=== PATIENT | female | born 2005 | race Hispanic/Latino ===

== ENCOUNTER 2023-03-06 16:44 | Emergency (ER) | payer OTHER ==
[2023-03-06] MEDS ORDERED: NA CHLORIDE 0.9% 1,000 ML ONE (17:27)
[2023-03-06] MEDS ORDERED: FAMOTIDINE 20 MG/2 ML VIAL IV ONE (17:27)
[2023-03-06 17:32] LABS: Specific Gravity 1.014 (1.005-1.030)
[2023-03-06 17:33] LABS: Specific Gravity 1.014 (1.005-1.030); Urine Bilirubin NEGATIVE (Negative); Urine Blood Negative (Negative); Urine Clarity Clear (Clear); Urine Color Light-Yellow (Yellow); Urine Glucose NEGATIVE (Negative); Urine Protein NEGATIVE (Negative); Urine Urobilinogen Normal (Normal)
[2023-03-06 17:38] LABS: Absolute Lymphocytes (CBC) 1.6 K/uL (0.7-4.9); Hematocrit 40.3 % (36.0-45.0); Lymphocytes % 22.5 % (15.3-44.8); MCV 92.1 fL (80-100); MPV 10.5 fL (7.6-11.3); Platelets 138 thou/uL (152-406); RBC Red Blood Cell Count 4.37 M/uL (3.86-4.86)
[2023-03-06 18:15] LABS: Albumin 3.9 g/dL (3.4-5.0); Bilirubin Total 0.8 mg/dL (0.2-1.0); Potassium 3.5 mEq/L (3.5-5.1); Protein, Total 8.1 g/dL (6.4-8.2)
--- NOTE | 2023-03-06 18:26 | EDPHYS ---
Physician Documentation [facility] Name: Mickie Cazares Age: 17 yrs Sex: Female : 2005 Arrival Date: 03/06/2023 Time: 16:44 Bed 9 Private MD: ED Physician Reginald Mccoy HPI: 03/06 17:05 This 17 yrs old Female presents to ER via Ambulatory with complaints of jh7 Abdominal Pain, Heartburn. 17:05 The patient presents with abdominal pain in the epigastric area, in the lower abdomen. jh7 Onset: The symptoms/episode began/occurred 1 week(s) ago. The symptoms do not radiate. Associated signs and symptoms: Pertinent positives: nausea, urinary frequency, Pertinent negatives: constipation, diarrhea, fever, vomiting. 17-year-old female presents to the ER for nausea, heartburn/burning feeling in chest and throat, and lower abdominal cramping. She states she was seen 1 week ago in an ER in [place]. She reports that they did imaging and stated that she had constipation. She reports that the pain has not gone away and that she is no longer constipated. Denies fever and dysuria, but reports urinary frequency.. 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 - Social history:: Smoking status: Patient denies any tobacco usage or history of. ROS: 17:05 Constitutional: Negative for fever, chills, and weight loss, Eyes: Negative for injury, jh7 pain, redness, and discharge, ENT: Negative for injury, pain, and discharge, Neck: Negative for injury, pain, and swelling, Cardiovascular: Negative for chest pain, palpitations, and edema, Respiratory: Negative for shortness of breath, cough, wheezing, and pleuritic chest pain, Back: Negative for injury and pain, MS/Extremity: Negative for injury and deformity, Skin: Negative for injury, rash, and discoloration, Neuro: Negative for headache, weakness, numbness, tingling, and seizure, 17:05 Abdomen/GI: Positive for abdominal pain, nausea, abdominal cramps, Negative for vomiting, diarrhea, constipation, 17:05 : Positive for urinary frequency, Negative for pelvic pain, flank pain, burning with urination, 17:05 All other systems are negative, Exam: 17:05 Constitutional: This is a well developed, well nourished patient who is awake, alert, jh7 and in no acute distress. Head/Face: Normocephalic, atraumatic. Eyes: Pupils equal round and reactive to light, extra-ocular motions intact. Lids and lashes normal. Conjunctiva and sclera are non-icteric and not injected. Cornea within normal limits. Periorbital areas with no swelling, redness, or edema. Neck: Trachea midline, no thyromegaly or masses palpated, and no cervical lymphadenopathy. Supple, full range of motion without nuchal rigidity, or vertebral point tenderness. No Meningismus. Cardiovascular: Regular rate and rhythm with a normal S1 and S2. No gallops, murmurs, or rubs. Normal PMI, no JVD. No pulse deficits. Respiratory: Lungs have equal breath sounds bilaterally, clear to auscultation and percussion. No rales, rhonchi or wheezes noted. No increased work of breathing, no retractions or nasal flaring. Abdomen/GI: Soft, non-tender, with normal bowel sounds. No distension or tympany. No guarding or rebound. No evidence of tenderness throughout. Back: No spinal tenderness. No costovertebral tenderness. Full range of motion. Skin: Warm, dry with normal turgor. Normal color with no rashes, no lesions, and no evidence of cellulitis. MS/ Extremity: Pulses equal, no cyanosis. Neurovascular intact. Full, normal range of motion. Neuro: Awake and alert, GCS 15, oriented to person, place, time, and situation. Motor strength 5/5 in all extremities. Sensory grossly intact. Normal gait. 17:05 Abdomen/GI: Inspection: abdomen appears normal, Bowel sounds: normal, Palpation: abdomen is soft and non-tender, Vital Signs: 17:05 BP 108 / 68; Pulse 98; Resp 18; Temp 97.8; Pulse Ox 100% on R/A; Weight 54.43 kg; ph Height 5 ft. 4 in. ; 17:23 BP 111 / 71; Pulse 93; Resp 18; Pulse Ox 100% on R/A; Pain 7/10; ld1 17:05 Body Mass Index 20.60 (54.43 kg, 162.56 cm) - Percentile 36.6 % ph 17:23 Pain Scale: Adult ld1 MDM: 16:52 Patient medically screened. 7 18:22 Differential diagnosis: gastritis, gastroesophageal reflux disease, non-specific abd jh7 pain, urinary tract infection. Data reviewed: vital signs, nurses notes, lab test result(s). I considered the following discharge prescriptions or medication management in the emergency department Medications were administered in the Emergency Department. See MAR. Counseling: I had a detailed discussion with the patient and/or guardian regarding the historical points, exam findings, and any diagnostic results supporting the discharge/admit diagnosis, to return to the emergency department if symptoms worsen or persist or if there are any questions or concerns that arise at home. Response to treatment: the patient's symptoms have markedly improved after treatment. 03/06 16:56 Order name: CBC with Diff; Complete Time: 18:03 [facility] 03/06 16:56 Order name: CMP; Complete Time: 18:21 [facility] 03/06 16:56 Order name: Lipase; Complete Time: 18:21 [facility] 03/06 16:56 Order name: Test, Urine; Complete Time: 18:03 [facility] 03/06 16:56 Order name: Urinalysis w/ reflexes; Complete Time: 18:03 [facility] 03/06 16:56 Order name: IV Saline Lock; Complete Time: 17:22 [facility] 03/06 16:56 Order name: Labs collected and sent; Complete Time: 17:22 [facility] Administered Medications: 17:22 Drug: NS 0.9% IV 1000 ml IV at 1 bolus Per protocol; 1000 mL bolus Route: IV; Rate: 1 ld1 bolus; Site: right antecubital; 17:22 Drug: Famotidine IVP 20 mg IVP once; dilute with 10 mL 0.9% NaCl; give over 2 minutes ld1 Route: IVP; Site: right antecubital; Disposition: 21:28 Co-signature as Attending Physician, Reginald Mccoy MD I reviewed the patient's care rt provided by the Advanced Practice Provider and agree with the diagnosis and treatment plan. Disposition Summary: 03/06/23 18:25 Discharge Ordered Notes: Location: Home [facility] Problem: new [facility] Symptoms: have improved jh Condition: Stable [facility] Diagnosis - Gastroesophageal reflux disease [facility] Followup: [facility] - With: Private Physician - When: 2 - 3 days - Reason: Recheck today's complaints Discharge Instructions: - Discharge Summary Sheet [facility] - Gastroesophageal Reflux Disease, Adult [facility] Forms: - Medication Reconciliation Form [facility] - Thank You Letter [facility] - Patient Portal Instructions [facility] - Leadership Thank You Letter [facility] Prescriptions: - Pepcid 20 mg Oral Tablet - take 1 tablet ORAL route once daily; 20 tablet; Refills: 0, Product Selection [facility] Permitted Signatures: Dispatcher [employer] Linda Alonzo RN RN [facility] RN RN ld1 Lucretia Lemus, PLASTICS SUPERVISOR PLASTICS SUPERVISOR [facility] Reginald Mccoy MD MD rt Corrections: (The following items were deleted from the chart) 18:29 17:05 17-year-old female presents to the ER for nausea, heartburn, and lower abdominal [facility] cramping. She states she was seen 1 week ago in an ER in [place]. She reports that they did imaging and stated that she had constipation. She reports that the pain has not gone away and that she is no longer constipated. Denies fever and dysuria, but reports urinary frequency.. [facility]
--- NOTE | 2023-03-06 18:26 | ER ---
Nurse's Notes [facility] Name: Mickie Cazares Age: 17 yrs Sex: Female : 2005 Arrival Date: 03/06/2023 Time: 16:44 Bed 9 Private MD: Diagnosis: Gastroesophageal reflux disease Presentation: 03/06 17:05 Chief complaint: Patient states: Lower abdominal pain since last week, seen at ED in [facility] and dx w/ constipation but has had BMs since then but still having pain, also reports nausea, heartburn and decreased appetite. Coronavirus screen: Vaccine status: Patient reports receiving the 2nd dose of the covid vaccine. Ebola Screen: No symptoms or risks identified at this time. Initial Sepsis Screen: Does the patient meet any 2 criteria? No. Patient's initial sepsis screen is negative. Does the patient have a suspected source of infection? No. Patient's initial sepsis screen is negative. Risk Assessment: Do you want to hurt yourself or someone else? Patient reports no desire to harm self or others. Onset of symptoms was March 06, 2023. 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 - Social history:: Smoking status: Patient denies any tobacco usage or history of. Screenin:[address] [facility] ED Fall Risk Assessment (Adult) History of falling in the last 3 months, ld1 including since admission No falls in past 3 months (0 pts). Abuse screen: Denies threats or abuse. Denies injuries from another. Nutritional screening: No deficits noted. Tuberculosis screening: No symptoms or risk factors identified. Assessment: 17:23 General: Appears in no apparent distress. comfortable, Behavior is calm, cooperative, ld1 appropriate for age. Pain: Complains of pain in right lower quadrant and left lower quadrant Pain does not radiate. Pain currently is 6 out of 10 on a pain scale. Quality of pain is described as pressure, throbbing, Pain began suddenly. Neuro: Level of Consciousness is awake, alert, obeys commands, Oriented to person, place, time, situation. Cardiovascular: Capillary refill < 3 seconds Patient's skin is warm and dry. Respiratory: Airway is patent Respiratory effort is even, unlabored. GI: Abdomen is flat, non-distended, Bowel sounds present X 4 quads. Abd is soft Abd is non tender Reports lower abdominal pain. : No signs and/or symptoms were reported regarding the genitourinary system. EENT: No signs and/or symptoms were reported regarding the EENT system. Derm: No signs and/or symptoms reported regarding the dermatologic system. Musculoskeletal: No signs and/or symptoms reported regarding the musculoskeletal system. Vital Signs: 17:05 BP 108 / 68; Pulse 98; Resp 18; Temp 97.8; Pulse Ox 100% on R/A; Weight 54.43 kg; ph Height 5 ft. 4 in. ; 17:23 BP 111 / 71; Pulse 93; Resp 18; Pulse Ox 100% on R/A; Pain 7/10; ld1 17:05 Body Mass Index 20.60 (54.43 kg, 162.56 cm) - Percentile 36.6 % ph 17:23 Pain Scale: Adult ld1 ED Course: 16:50 Patient arrived in ED. mg5 16:52 Lucretia Lemus FNP [facility] jh7 16:52 Reginald Mccoy MD is Attending Physician. jh7 17:08 Triage completed. ph 17:08 Arm band placed on Patient placed in an exam room. ph 17:22 Camila Adrian, RN is Primary Nurse. ld1 17:22 Urinalysis w/ reflexes Sent. ld1 17:22 CBC with Diff Sent. ld1 17:22 CMP Sent. ld1 17:23 Patient has correct armband on for positive identification. Placed in gown. Bed in low ld1 position. Call light in reach. Side rails up X2. Pulse ox on. NIBP on. Door closed. Noise minimized. Warm blanket given. 17:23 Lipase Sent. ld1 17:23 Test, Urine Sent. ld1 17:23 No provider procedures requiring assistance completed. Inserted saline lock: 20 gauge ld1 in right antecubital area, using aseptic technique. Blood collected. 18:52 IV discontinued, intact, bleeding controlled, No redness/swelling at site. ld1 Administered Medications: 17:22 Drug: NS 0.9% IV 1000 ml IV at 1 bolus Per protocol; 1000 mL bolus Route: IV; Rate: 1 ld1 bolus; Site: right antecubital; 17:22 Drug: Famotidine IVP 20 mg IVP once; dilute with 10 mL 0.9% NaCl; give over 2 minutes ld1 Route: IVP; Site: right antecubital; Medication: 17:23 VIS not applicable for this client. ld1 Outcome: 18:25 Discharge ordered by MD. andrews 18:52 Discharged to home ambulatory, ld1 18:52 Condition: stable 18:52 Discharge instructions given to patient, Instructed on discharge instructions, follow up and referral plans. Demonstrated understanding of instructions, follow-up care, medications, Prescriptions given X 1, 18:52 Patient left the ED. ld1 Signatures: Linda Masters, RN RN Camila Adrian RN RN ld1 Lucretia Lemus, HOIST WORKER HOIST WORKER Isabel Rothman mg5 Corrections: (The following items were deleted from the chart) 17:24 17:23 Patient is placed in psych hold ld1 ld1
[2023-03-06 19:20] VITALS: TEMP 97.8; O2SAT 100
[2023-03-06 19:21] VITALS: BP 111/71
== END 2023-03-06 18:52 | disposition home or self-care (01) ==
LOC: ER 16:44
DX: K21.9 Gastro-esophageal reflux disease without esophagitis (principal)
CPT/HCPCS: 85025; 36415; 81025; 81003; 83690; 80053; 96374; 99284; J7030

== ENCOUNTER 2023-03-16 20:40 | Emergency (ER) | payer OTHER ==
--- OUTSIDE RECORDS SUMMARY | 2023-03-16 20:43 | XMS REPORT | Continuity of Care Document ---
:2005 Author Organization [facility] t Address [address] [place] [address] [address] [place] [address] Care Team Providers Name Role Phone NONE, NONE Primary Care Physician Unavailable DR RAGHAV GONZALEZ Attending Clinician Unavailable DR RAGHAV GONZALEZ Attending Clinician Unavailable DR RAGHAV GONZALEZ Admitting Clinician Unavailable Payers Payer Name Policy Type Policy Number Effective Date Expiration Date S edwin 0345 [id number] 1959 00:00:00 Problems This patient has no known problems. Allergies, Adverse Reactions, Alerts Allergy Allergy Status Severity Reaction(s) Onset Inactive Treating Comm ents Source Name Type Date Date Clinician No Known DA Active [facility] s Medications This patient has no known medications. Vital Signs Vital Name Observation Time Observation Value Comments Source Weight 2023-02-26 20:10:00 50 KG Weight 2023-02-26 20:10:00 50 KG Procedures This patient has no known procedures. Encounters Start End Encounter Admission Attending Care Care Encounter Source Date/Time Date/Time Type Type Clinicians Facility Department ID 2023-02-26 Inpatient E [facility] [id number] [facility] 20:09:[id number] [place] [address] 2023-02-26 2023-02-26 Emergency E RAGHAV GONZALEZ [facility] [id number] [facility] 20:09:00 23:19:00 RAGHAV GONZALEZ [facility] Results Test Description Test Time Test Comments Results Result Comments Source XR ABDOMEN AP 1 2023-02-26 VIEW EA *[facility]* 22:57:[facility] 2005 Sex: F Abdomen (KUB)History: UNSPECIFIED ABDOMINAL PAIN;Abdominal painComparison: None at this timeLocation: W65Hpjgfo of views: 2The bowel gas pattern is unremarkable. The bones appear unremarkable.No pathologic calcifications are identified. There is a large amount of stool in the colon.IMPRESSION:T here is a large amount of stool in the colon. Otherwise, there are no localizing signs in the abdomen.Electronic ally signed by: Martin Bonner MD 02/26/2023 10:57 PM SCREENING UNIT REGISTERED NURSE URINE MONOCLONAL *WW* 2023-02-26 21:32:00 Test Item Value Reference Range Interpretation Comme nts PREG UR (test code = PGU) NEGATIVE NEGATIVE URINALYSIS *WW*2023-02-26 21:30:00 Test Item Value Reference Range Interpretation Comments COLOR (test code = COLU) YELLOW YELLOW CLARITY (test code = CLA) CLEAR CLEAR GLUCOSE UR (test code = UA GLUCOSE) NEGATIVE NEGATIVE BILI UR (test code = BILE) NEGATIVE NEGATIVE KETONES UR (test code = BRIANNA) NEGATIVE NEGATIVE SP GRAVITY (test code = SPGR) 1.010 1.005-1.030 PH UR (test code = PH) 6.5 4.5-8.0 PROTEIN UR (test code = PU) NEGATIVE NEGATIVE UROBIL UR (test code = UROQ) 0.2 EU/dL 0.2-1.0 NITRITE UR (test code = NITRITE) NEGATIVE NEGATIVE BLOOD UR (test code = UA BLOOD) NEGATIVE NEGATIVE LEUK ES UR (test code = LEUK) NEGATIVE NEGATIVE AUAM (test code = WAUAM) NO NO
[2023-03-16 23:06] LABS: Specific Gravity 1.017 (1.005-1.030); Urine Bilirubin NEGATIVE (Negative); Urine Blood Negative (Negative); Urine Clarity Clear (Clear); Urine Color Light-Yellow (Yellow); Urine Glucose NEGATIVE (Negative); Urine Protein NEGATIVE (Negative); Urine Urobilinogen Normal (Normal)
[2023-03-16 23:12] LABS: Specific Gravity 1.017 (1.005-1.030)
[2023-03-16 23:16] LABS: Absolute Lymphocytes (CBC) 2.4 K/uL (0.7-4.9); Hematocrit 34.6 % (36.0-45.0); Lymphocytes % 30.8 % (15.3-44.8); MCV 92.9 fL (80-100); MPV 11.3 fL (7.6-11.3); Platelets 135 thou/uL (152-406); RBC Red Blood Cell Count 3.73 M/uL (3.86-4.86)
[2023-03-16] MEDS ORDERED: ACETAMINOPHEN 500 MG TAB ONE (23:22)
[2023-03-16] MEDS ORDERED: ONDANSETRON 4 MG/2 ML VIAL ONE (23:23)
[2023-03-16] MEDS ORDERED: KETOROLAC 30 MG/ML INJ ONE (23:23)
[2023-03-16 23:24] LABS: Albumin 3.4 g/dL (3.4-5.0); Bilirubin Total 0.5 mg/dL (0.2-1.0); Potassium 3.7 mEq/L (3.5-5.1); Protein, Total 7.2 g/dL (6.4-8.2)
--- NOTE | 2023-03-17 00:23 | EDPHYS ---
Physician Documentation [facility] Name: Mickie Cazares Age: 17 yrs Sex: Female : 2005 Arrival Date: 03/16/2023 Time: 20:40 Bed 6 Private MD: ED Physician Carlton Keita HPI: 03/16 20:57 This 17 yrs old Female presents to ER via Ambulatory with complaints of sp4 Abdominal Pain. 03/17 00:16 We have a very pleasant 17-year-old female who presents with complaint of left lower sp4 abdominal pain starting some several days ago. Patient also reports associated heartburn but no vomiting. Patient states that she was here recently and was prescribed Pepcid for heartburn. . 00:16 Old record states that patient was here on 06 March and was prescribed Pepcid for sp4 heartburn. . 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 - Social history:: Smoking status: Patient denies any tobacco usage or history of. Patient/guardian denies using alcohol, street drugs. - Family history:: not pertinent. ROS: 03/17 00:16 Constitutional: Negative for fever, chills, and weight loss, Abdomen/GI: Positive sp4 abdominal pain positive constipation , positive heartburn, positive left lower abdominal pain All other systems are negative, Exam: 00:16 Constitutional: This is a well developed, well nourished patient who is awake, alert, sp4 and in no acute distress. Head/Face: Normocephalic, atraumatic. Eyes: Pupils equal round and reactive to light, extra-ocular motions intact. Lids and lashes normal. Conjunctiva and sclera are not injected. Cornea within normal limits. Periorbital areas with no swelling, redness, or edema. ENT: Nares patent. No nasal discharge, no septal abnormalities noted. Tympanic membranes are normal and external auditory canals are clear. Oropharynx with no redness, swelling, or masses, exudates, or evidence of obstruction, uvula midline. Mucous membranes moist. Neck: Trachea midline, no thyromegaly or masses palpated, and no cervical lymphadenopathy. Supple, full range of motion without nuchal rigidity, or vertebral point tenderness. Chest/axilla: Normal chest wall appearance and motion. Nontender with no deformity. No lesions are appreciated. Cardiovascular: Regular rate and rhythm with a normal S1 and S2. No gallops, murmurs, or rubs. Normal PMI, no JVD. No pulse deficits. Respiratory: Lungs have equal breath sounds bilaterally, clear to auscultation and percussion. No rales, rhonchi or wheezes noted. No increased work of breathing, no retractions or nasal flaring. Abdomen/GI: Soft, non-tender, with normal bowel sounds. No distension or tympany. No guarding or rebound. No evidence of tenderness throughout. Back: No spinal tenderness. No costovertebral tenderness. Skin: Warm, dry with normal turgor. Normal color with no rashes, no lesions, and no evidence of cellulitis. MS/ Extremity: Pulses equal, no cyanosis. Neurovascular intact. Full, normal range of motion. Neuro: Awake and alert, GCS 15, oriented to person, place, time, and situation. Cranial nerves II-XII grossly intact. Motor strength 5/5 in all extremities. Sensory grossly intact. Psych: Awake, alert, with orientation to person, place and time. Behavior, mood, and affect are within normal limits Vital Signs: 03/16 20:51 BP 111 / 71; Pulse 85; Resp 16; Temp 98(O); Pulse Ox 100% on R/A; Weight 54.43 kg (R); 8 Height 5 ft. 4 in. (R); Pain 10; 03/17 00:41 BP 100 / 64; Pulse 65; Resp 18 S; Pulse Ox 100% on R/A; ha1 01:34 BP 95 / 71; Pulse 76; Resp 16; Pulse Ox 100% ; bp 03/16 20:51 Body Mass Index 20.60 (54.43 kg, 162.56 cm) - Percentile 36.6 % [facility] 03/16 20:51 Pain Scale: Adult [facility] MDM: 03/16 20:57 Patient medically screened. sp4 03/17 00:11 ED course: CT report - TECHNIQUE: CT of the abdomen and pelvis performed following the sp4 administration of IV contrast. No oral contrast. This exam was performed according to our departmental dose-optimization program, which includes automated exposure control, adjustment of the mA and/or kV according to patient size and/or use of iterative reconstruction technique. FINDINGS: Lung Bases: The visualized lung bases are clear. Abdomen: Liver: The liver has normal contour and density. No suspicious mass. Gallbladder: No calcified gallstones. No significant biliary dilatation. Spleen, Pancreas, and Adrenal Glands: The spleen, pancreas, and adrenal glands are unremarkable. Kidneys: No suspicious mass. No urinary tract calculi. No hydronephrosis. Vasculature: The aorta and IVC have normal caliber and position. The portal vein is patent. The proximal visceral and renal arteries are patent. Stomach: The stomach and duodenum have normal course. Other: No free intraperitoneal air. No free fluid or lymphadenopathy. Pelvis: Bladder: Urinary bladder is unremarkable. Bowel: No dilated loops of large or small bowel. Moderate to large amount of stool in the colon. Appendix: Normal appendix. Pelvis: No suspicious mass. Bones: No destructive bone lesions identified. IMPRESSION: Moderate to large amount of stool in the colon. No bowel obstruction. No other acute abnormality on CT of the abdomen and pelvis.. 00:16 Differential Diagnosis altered mental status, sepsis, flu. Data reviewed: vital signs, sp4 nurses notes, old medical records, lab test result(s), radiologic studies, CT scan. Consideration of Admission/Observation Escalation of care including admission/observation considered. ED course: CT reveals constipation but no other emergent problem. Patient will be advised to switch to omeprazole 20 mg daily , or may be even 40 mg daily . We shall prescribe some Bentyl for abdominal pain and also discussed with fiber supplementation for constipation. Additionally patient may benefit from some Senokot for constipation. . 03/16 20:57 Order name: CBC with Diff; Complete Time: 23:52 sp4 03/16 20:57 Order name: CMP; Complete Time: 23:52 sp4 03/16 20:57 Order name: Lipase; Complete Time: 23:52 sp4 03/16 20:57 Order name: Test, Urine; Complete Time: 23:52 sp4 03/16 20:57 Order name: Urinalysis w/ reflexes; Complete Time: 23:52 sp4 03/16 21:34 Order name: CT Abd/Pelvis - IV Contrast Only sp4 03/16 20:57 Order name: IV Saline Lock; Complete Time: 22:30 sp4 03/16 20:57 Order name: Labs collected and sent; Complete Time: 22:30 sp4 Administered Medications: 03/16 23:18 Drug: Ondansetron IVP 4 mg IVP once; over 2 minutes Route: IVP; Site: right antecubital;bp 03/17 01:33 Follow up: Response: No adverse reaction bp 03/16 23:18 Drug: Ketorolac IVP 30 mg IVP once Route: IVP; Site: right antecubital; bp 03/17 01:33 Follow up: Response: No adverse reaction bp 03/16 23:18 Drug: Acetaminophen PO 1000 mg PO once Route: PO; bp 03/17 01:33 Follow up: Response: No adverse reaction bp 00:40 Drug: Pantoprazole PO 40 mg PO once Route: PO; ha1 01:33 Follow up: Response: No adverse reaction bp 00:40 Drug: Dicyclomine PO 20 mg PO once Route: PO; ha1 01:34 Follow up: Response: No adverse reaction bp 01:33 Not Given (MED NOT IN INVENTORYy): [id number] mg PO once bp Disposition Summary: 03/17/23 00:23 Discharge Ordered Notes: Location: Home sp4 Problem: new sp4 Symptoms: have improved sp4 Condition: Stable sp4 Diagnosis - Constipation, unspecified sp4 - Lower abdominal pain, unspecified sp4 Followup: sp4 - With: Carlton Keita MD - When: 10 - 14 days - Reason: Recheck today's complaints Followup: sp4 - With: Private Physician - When: 7 - 10 days - Reason: Recheck today's complaints Followup: sp4 - With: Jose Roy DO - When: 7 - 10 days - Reason: Recheck today's complaints Discharge Instructions: - Discharge Summary Sheet sp4 - Constipation, Adult, [id number] sp4 Forms: - Patient Portal Instructions sp4 Prescriptions: - Senokot-S 8.6-50 mg Oral tablet - take 1 tablet ORAL route daily as needed for constipation; 30 tablet; Refills: sp4 0, Product Selection Permitted - omeprazole 40 mg Oral capsule,delayed release (e.c.) - take 1 capsule ORAL route daily Take dailyl for heart burn; 30 capsule; sp4 Refills: 0, Product Selection Permitted - dicyclomine 20 mg Oral tablet - take 1 tablet ORAL route every 8 hours PRN abdominal cramps; 30 tablet; sp4 Refills: 0, Product Selection Permitted Signatures: Dispatcher [employer] Richard Self, RN RN Barbi Pineda RN RN ha1 Carlton Keita MD MD sp4 Felicia Robbins RN RN km8
--- NOTE | 2023-03-17 00:23 | ER ---
Nurse's Notes [facility] Name: Mickie Cazares Age: 17 yrs Sex: Female : 2005 Arrival Date: 03/16/2023 Time: 20:40 Bed 6 Private MD: Diagnosis: Constipation, unspecified;Lower abdominal pain, unspecified Presentation: 03/16 20:51 Chief complaint: Patient states: seen about 7-10 days ago and symptoms got worse, ABD km8 bloating and pain; denies n/v/d, fever/chills, or vaginal issues; took prescribed antacid with no relief. Coronavirus screen: Client denies travel out of the [place] in the last 14 days. Ebola Screen: No symptoms or risks identified at this time. Initial Sepsis Screen: Does the patient meet any 2 criteria? No. Patient's initial sepsis screen is negative. Does the patient have a suspected source of infection? No. Patient's initial sepsis screen is negative. Risk Assessment: Do you want to hurt yourself or someone else? Patient reports no desire to harm self or others. Onset of symptoms was February 27, 2023. 20:51 Method Of Arrival: Ambulatory km8 20:51 Acuity: ALFONZO 3 km8 Triage Assessment: 20:54 General: Appears in no apparent distress. comfortable, Behavior is calm, cooperative, km8 appropriate for age. Pain: Complains of pain in left lower quadrant Pain currently is 7 out of 10 on a pain scale. Quality of pain is described as pressure, Is intermittent. EENT: No signs and/or symptoms were reported regarding the EENT system. Neuro: Lao Agitation-Sedation Scale (RASS): 0 - Alert and Calm Level of Consciousness is awake, alert, obeys commands, Oriented to person, place, time. Cardiovascular: Denies chest pain, shortness of breath, Capillary refill < 3 seconds Patient's skin is warm and dry. Respiratory: Airway is patent Respiratory effort is even, unlabored, Respiratory pattern is regular, symmetrical. GI: Abdomen is non-distended, Reports lower abdominal pain, bloating, Patient currently denies diarrhea, nausea, vomiting. : No signs and/or symptoms were reported regarding the genitourinary system. Derm: No signs and/or symptoms reported regarding the dermatologic system. Skin is intact, Skin is dry, Skin is pink, warm \T\ dry. normal, Skin temperature is warm. Musculoskeletal: No signs and/or symptoms reported regarding the musculoskeletal system. Range of motion: intact in all extremities. 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 - Social history:: Smoking status: Patient denies any tobacco usage or history of. Patient/guardian denies using alcohol, street drugs. - Family history:: not pertinent. Screenin/27 00:41 Abuse screen: Denies threats or abuse. Denies injuries from another. Nutritional ha1 screening: No deficits noted. Tuberculosis screening: No symptoms or risk factors identified. 01:35 [facility] ED Fall Risk Assessment (Adult) History of falling in the last 3 months, bp including since admission No falls in past 3 months (0 pts). Assessment: 03/16 22:30 General: Appears comfortable, Behavior is calm, cooperative. Pain: Complains of pain in ha1 abdomen Pain does not radiate. Pain currently is 7 out of 10 on a pain scale. Quality of pain is described as crampy. Neuro: Level of Consciousness is awake, alert, obeys commands, Oriented to person, place, time, situation. Cardiovascular: Patient's skin is warm and dry. Respiratory: Airway is patent Respiratory effort is even, unlabored, Respiratory pattern is regular, symmetrical. GI: Reports lower abdominal pain, constipation, flatulence. 03/17 00:40 Reassessment: Patient and/or family updated on plan of care and expected duration. Pain ha1 level reassessed. Patient is alert, oriented x 3, equal unlabored respirations, skin warm/dry/pink. awaiting on medication administration. medication requested from different department. 01:35 Reassessment: Patient appears in no apparent distress at this time. Patient states bp symptoms have improved. 01:35 GI: Bowel sounds present X 4 quads. Abd is soft X 4 quads. bp Vital Signs: 03/16 20:51 BP 111 / 71; Pulse 85; Resp 16; Temp 98(O); Pulse Ox 100% on R/A; Weight 54.43 kg (R); km8 Height 5 ft. 4 in. (R); Pain 7/10; 03/17 00:41 BP 100 / 64; Pulse 65; Resp 18 S; Pulse Ox 100% on R/A; ha1 01:34 BP 95 / 71; Pulse 76; Resp 16; Pulse Ox 100% ; bp 03/16 20:51 Body Mass Index 20.60 (54.43 kg, 162.56 cm) - Percentile 36.6 % [facility] 03/16 20:51 Pain Scale: Adult [facility] ED Course: 03/16 20:46 Patient arrived in ED. gm2 20:54 Triage completed. km8 20:54 Arm band placed on right wrist. km8 20:56 Carlton Keita MD is Attending Physician. sp4 20:57 Patient has correct armband on for positive identification. Placed in gown. Bed in low ha1 position. Call light in reach. Side rails up X 1. 22:25 No provider procedures requiring assistance completed. Inserted saline lock: 20 gauge kb3 in right antecubital area, using aseptic technique. Blood collected. 22:30 CBC with Diff Sent. kb3 22:30 CMP Sent. kb3 22:30 Lipase Sent. kb3 22:30 Test, Urine Sent. kb3 22:30 Urinalysis w/ reflexes Sent. kb3 22:58 Richard Duke, RN is Primary Nurse. bp 23:52 CT Abd/Pelvis - IV Contrast Only In Process Unspecified. EDMS 03/17 00:21 Carlton Keita MD is Referral Physician. sp4 00:22 Referral Physician role handed off by Carlton Keita MD sp4 00:22 Jose Roy DO is Referral Physician. sp4 01:34 IV discontinued, intact, bleeding controlled, No redness/swelling at site. Pressure bp dressing applied. 01:35 Provided Education on: N/A. bp Administered Medications: 03/16 23:18 Drug: Ondansetron IVP 4 mg IVP once; over 2 minutes Route: IVP; Site: right antecubital;bp 03/17 01:33 Follow up: Response: No adverse reaction bp 03/16 23:18 Drug: Ketorolac IVP 30 mg IVP once Route: IVP; Site: right antecubital; bp 03/17 01:33 Follow up: Response: No adverse reaction bp 03/16 23:18 Drug: Acetaminophen PO 1000 mg PO once Route: PO; bp 03/17 01:33 Follow up: Response: No adverse reaction bp 00:40 Drug: Pantoprazole PO 40 mg PO once Route: PO; ha1 01:33 Follow up: Response: No adverse reaction bp 00:40 Drug: Dicyclomine PO 20 mg PO once Route: PO; ha1 01:34 Follow up: Response: No adverse reaction bp 01:33 Not Given (MED NOT IN INVENTORYy): [id number] mg PO once bp Medication: 00:42 VIS not applicable for this client. ha1 Outcome: 00:23 Discharge ordered by MD. jeronimo 01:34 Discharged to home ambulatory, bp 01:34 Condition: stable 01:34 Discharge instructions given to patient, Instructed on discharge instructions, follow up and referral plans. medication usage, Demonstrated understanding of instructions, follow-up care, medications, Prescriptions given X 3, 01:39 Patient left the ED. ha1 Signatures: Dispatcher [employer] EDMS Richard Duke RN RN bp Barbi Nolan RN RN ha1 Kiki Anderson, RN NYLA [email or web address] Carlton Keita MD MD sp4 Samantha Maritnez 2 Felicia Robbins, RN RN km8
[2023-03-17] MEDS ORDERED: DICYCLOMINE HCL 10 MG CAP ONE (00:46)
[2023-03-17] MEDS ORDERED: PANTOPRAZOLE 40MG TABLET PO ONE (00:46)
[2023-03-17] MEDS ORDERED: DOCUSATE NA 100 MG CAP PO ONE (01:49)
[2023-03-17 01:58] VITALS: TEMP 98; O2SAT 100
[2023-03-17 02:01] VITALS: BP 95/71
--- NOTE | 2023-03-17 14:23 | RAD REPORT ---
EXAM DESCRIPTION: Abdomen Pelvis W Contrast CLINICAL HISTORY: ABD PAIN COMPARISON: None Available. TECHNIQUE: CT of the abdomen and pelvis performed following the administration of IV contrast. No ora l contrast. This exam was performed according to our departmental dose-optimization program, which in cludes automated exposure control, adjustment of the mA and/or kV according to patient size and/or us e of iterative reconstruction technique. FINDINGS: Lung Bases: The visualized lung bases are clear. Abdomen: Liver: The liver has normal contour and density. No suspicious mass. Gallbladder: No calcified gallstones. No significant biliary dilatation. Spleen, Pancreas, and Adrenal Glands: The spleen, pancreas, and adrenal glands are unremarkable. Kidneys: No suspicious mass. No urinary tract calculi. No hydronephrosis. Vasculature: The aorta and IVC have normal caliber and position. The portal vein is patent. The pro ximal visceral and renal arteries are patent. Stomach: The stomach and duodenum have normal course. Other: No free intraperitoneal air. No free fluid or lymphadenopathy. Pelvis: Bladder: Urinary bladder is unremarkable. Bowel: No dilated loops of large or small bowel. Moderate to large amount of stool in the colon. Appendix: Normal appendix. Pelvis: No suspicious mass. Bones: No destructive bone lesions identified. IMPRESSION: Moderate to large amount of stool in the colon. No bowel obstruction. No other acute abnormality on CT of the abdomen and pelvis. Electronically signed by: Concetta Valadez MD 03/16/2023 11:57 PM OBSTETRIC ANAESTHETIST Due to temporary technical issues with the PACS/Fluency reporting system, reports are being signed by the in house radiologist without review as a courtesy to ensure prompt reporting. The interpreting r adiologist is fully responsible for the content of the report.
== END 2023-03-17 01:39 | disposition home or self-care (01) ==
LOC: ER 20:40
DX: K59.00 Constipation, unspecified (principal); R10.32 Left lower quadrant pain
CPT/HCPCS: 85025; 36415; 81025; 81003; 83690; 80053; 74177; 96375; 96374; 99284; Q9967; J2405